=== PATIENT | female | born 2000 | race Caucasian/White ===

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

== ENCOUNTER 2019-07-31 22:08 | Emergency (ER) | payer OTHER ==
[~2019-07-31] VITALS: Ht 165.1 cm; Wt 55.3 kg
[2019-07-31 22:20] VITALS: BP 112/78
[2019-08-01] MEDS ORDERED: AZITHROMYCIN 250 MG TABLET ONE (00:13)
[2019-08-01] MEDS ORDERED: AZITHROMYCIN 250 MG TABLET PO ONE (00:30)
== END 2019-08-01 00:16 | disposition home or self-care (01) ==
LOC: ER 22:09
DX: J18.8 Other pneumonia, unspecified organism (principal)
CPT/HCPCS: 71045-TC

== ENCOUNTER 2021-01-16 11:40 | Emergency (ER) | payer OTHER ==
[~2021-01-16] VITALS: Ht 165.1 cm; Wt 57.6 kg
--- NOTE | 2021-01-16 11:59 | NUR ---
20 yaesr old female walking to er with mom c/o gen body rash since last friday, went to urgent care no improvement.
[2021-01-16] MEDS ORDERED: DEXAMETHASONE SOD PHOSPHATE 10 MG/ML VIAL IV ONE (12:30)
[2021-01-16 12:33] LABS: BASOPHILS % (AUTO) 0.1 % (0.0-2.0); EOSINOPHILS % (AUTO) 2.2 % (0.0-6.0); HEMATOCRIT 38 % (33-45); HEMOGLOBIN 12.7 g/dL (11.5-14.8); LYMPHOCYTES # (AUTO) 1.6 /CMM (0.8-4.8); LYMPHOCYTES % (AUTO) 26.8 % (20.0-44.0); MEAN CORPUSCULAR HGB CONC 33 g/dl (31.0-36.0); MEAN CORPUSCULAR VOLUME 86 fL (82-100); MONOCYTES # (AUTO) 0.3 /CMM (0.1-1.30); MONOCYTES % (AUTO) 4.5 % (2.0-12.0); NEUTROPHILS # (AUTO) 3.9 /CMM (1.8-8.9); NEUTROPHILS % (AUTO) 66.4 % (43.0-81.0); PLATELET COUNT (AUTO) 208 /CMM (150-450); RED BLOOD CELL COUNT(AUTO) 4.45 MIL/uL (4.0-5.2); WHITE BLOOD COUNT (AUTO) 5.8 K/uL (4.3-11.0)
[2021-01-16] MEDS ORDERED: DEXAMETHASONE SOD PHOSPHATE 10 MG/ML VIAL ONE (12:35)
[2021-01-16 12:42] LABS: CALCIUM, SERUM 9.2 mg/dL (8.5-10.1); CREATININE 0.6 mg/dL (0.6-1.3); POTASSIUM 4.4 mmol/L (3.5-5.1)
[2021-01-16 13:00] VITALS: BP 119/65
--- NOTE | 2021-01-16 13:26 | NUR ---
IV removed. Catheter intact and site benign. Pressure and 4x4 applied to site. No bleeding noted.Patient discharged to home in stable condition. Written and verbal after care instructions given. Patient verbalizes understanding of instruction.
== END 2021-01-16 13:47 | disposition home or self-care (01) ==
LOC: ER 11:40
DX: T78.49XA Other allergy, initial encounter (principal); L50.8 Other urticaria; X58.XXXA Exposure to other specified factors, initial encounter
CPT/HCPCS: 36415; 80048; 85025; 96374; 99283; J1100

== ENCOUNTER 2023-05-28 22:01 | Emergency (ER) | payer OTHER ==
[~2023-05-28] VITALS: Ht 165.1 cm; Wt 59.0 kg
[2023-05-28 22:59] LABS: BASOPHILS % (AUTO) 0.5 % (0.0-2.0); EOSINOPHILS # (AUTO) 0.3 K/uL (0.0-0.7); EOSINOPHILS % (AUTO) 4.4 % (0.0-6.0); HEMATOCRIT 41 % (33-45); HEMOGLOBIN 13.8 g/dL (11.5-14.8); LYMPHOCYTES # (AUTO) 2.7 K/uL (0.8-4.8); LYMPHOCYTES % (AUTO) 37.6 % (20.0-44.0); MEAN CORPUSCULAR HEMOGLOBIN 28 PG (26.0-33.0); MEAN CORPUSCULAR HGB CONC 34 g/dl (31.0-36.0); MEAN CORPUSCULAR VOLUME 84 fL (82-100); MONOCYTES # (AUTO) 0.4 K/uL (0.1-1.30); MONOCYTES % (AUTO) 5.5 % (2.0-12.0); NEUTROPHILS # (AUTO) 3.7 K/uL (1.8-8.9); PLATELET COUNT (AUTO) 260 K/uL (150-450); RED BLOOD CELL COUNT(AUTO) 4.87 MIL/uL (4.0-5.2); RED CELL DISTRIBUTION WIDTH 13.6 % (11.5-15.0); WHITE BLOOD COUNT (AUTO) 7.1 K/uL (4.3-11.0)
[2023-05-28 23:00] VITALS: TEMP 98
[2023-05-28] MEDS ORDERED: ONDANSETRON 4 MG TAB.RAPDIS SL ONE (23:00)
[2023-05-28 23:07] LABS: CALCIUM, SERUM 9.5 mg/dL (8.5-10.1); CREATININE 0.9 mg/dL (0.6-1.3); POTASSIUM 4.3 mmol/L (3.5-5.1)
[2023-05-28] MEDS ORDERED: ONDA4TAB11 PO (23:43)
[2023-05-29 00:20] VITALS: BP 129/77; O2SAT 99
== END 2023-05-29 00:21 | disposition home or self-care (01) ==
LOC: ER 22:04
DX: F12.90 Cannabis use, unspecified, uncomplicated (principal); R11.0 Nausea
CPT/HCPCS: 36415; 71045-TC; 80048-TC; 85025-TC

== ENCOUNTER 2023-12-02 16:23 | Emergency (ER) | payer OTHER ==
[~2023-12-02] VITALS: Ht 165.1 cm; Wt 59.4 kg
[~2023-12-02 16:23] MED LIST: ONDA4TAB11 PO
[2023-12-02 17:34] VITALS: BP 127/71; TEMP 98.4; O2SAT 100
== END 2023-12-02 17:35 | disposition home or self-care (01) ==
LOC: ER 16:26
DX: N64.4 Mastodynia (principal); R00.2 Palpitations; T50.0X5A Adverse effect of mineralocorticoids and their antagonists, initial encounter; F19.10 Other psychoactive substance abuse, uncomplicated; Y92.89 Other specified places as the place of occurrence of the external cause

== ENCOUNTER 2024-01-30 06:46 | Emergency (ER) | payer OTHER ==
[~2024-01-30] VITALS: Ht 165.1 cm; Wt 58.1 kg
[2024-01-30] MEDS ORDERED: FAMOTIDINE (20 MG) 20 MG TABLET ONE ×2 (07:16→07:20)
[2024-01-30] MEDS ORDERED: methylPREDNISolone SOD SUCC 125 MG/2ML VIAL ONE ×2 (07:16→07:19)
[2024-01-30] MEDS ORDERED: diphenhydrAMINE HCL 50 MG CAPSULE ONE ×2 (07:16→07:20)
[2024-01-30] MEDS ORDERED: PRED50TA PO (07:17)
[2024-01-30] MEDS: methylPREDNISolone SOD SUCC 125 MG/2ML VIAL IM ONE (07:22)
[2024-01-30] MEDS: diphenhydrAMINE HCL 50 MG CAPSULE PO ONE (07:22)
[2024-01-30] MEDS: FAMOTIDINE (20 MG) 20 MG TABLET PO ONE (07:22)
[2024-01-30 08:38] VITALS: BP 146/91; TEMP 98.7; O2SAT 98
== END 2024-01-30 08:39 | disposition home or self-care (01) ==
LOC: ER 06:46
DX: L50.9 Urticaria, unspecified (principal); T78.04XA Anaphylactic reaction due to fruits and vegetables, initial encounter; Z79.899 Other long term (current) drug therapy; Z79.52 Long term (current) use of systemic steroids; Y92.89 Other specified places as the place of occurrence of the external cause
CPT/HCPCS: 99283; 96372; Q0163; J2919

== ENCOUNTER 2024-05-05 21:53 | Emergency (ER) | payer OTHER ==
[~2024-05-05] VITALS: Ht 167.6 cm; Wt 59.0 kg
[~2024-05-05 21:53] MED LIST changes: +PRED50TA PO
[2024-05-05 23:56] VITALS: BP 117/77; TEMP 98.5; O2SAT 95
[2024-05-06] MEDS ORDERED: CEPHALEXIN MONOHYDRATE 500 MG CAPSULE PO ONE ×2 (00:04→00:09)
[2024-05-06] MEDS ORDERED: CEPH500C2 PO (00:10)
[2024-05-06] MEDS: CEPHALEXIN MONOHYDRATE 500 MG CAPSULE PO ONE (00:11)
== END 2024-05-06 00:16 | disposition home or self-care (01) ==
LOC: ER 21:58
DX: L03.313 Cellulitis of chest wall (principal); Z79.52 Long term (current) use of systemic steroids